=== PATIENT | female | born 1980 | race Caucasian/White ===

== ENCOUNTER 2016-08-14 18:19 | Emergency (ER) | payer BC ==
[2016-08-14 20:12] VITALS: BP 106/79
[2016-08-14] MEDS ORDERED: Ondansetron ODT TAB* 4 MG PO ONE (20:18)
[2016-08-14] MEDS ORDERED: Acetaminophen TAB* 325 MG PO ONE (20:52)
--- NOTE | 2016-08-14 20:57 | UC ---
HPI Febrile Illness - HPI Summary HPI Summary: felt well all day yesterday, then last night began feeling achey and chilled. Since then, fever to 103, vomited twice, total body aches, headache, sore throat , fatigue. "I cried all the way here, I have never felt so sick." Son ill with stomach virus, threw up all last night, today seems better. Pt unable to eat today due to nausea, not taking much fluids. No diarrhea. No flu shot this year - History of Current Complaint Chief Complaint: UCRespiratory Time Seen by Provider: 08/14/16 20:18 Hx Obtained From: Patient Onset/Duration: Started Days Ago - 1 Timing: Constant Initial Severity: Mild Current Severity: Moderate Aggravating Factors: Nothing Alleviating Factors: Nothing Associated Signs and Symptoms: Arthralgia, Chills, Headache, Myalgia, Nausea, Vomiting - twice, Weakness - Risk Factors Pseudomonas Risk Factors: Negative Serious Bacterial Infection Risk Factors: Negative - Additional Pertinent History Current Antibiotics: No - Allergy/Home Medications Allergies/Adverse Reactions: Allergies Allergy/AdvReac Type Severity Reaction Status Date / Time No Known Allergies Allergy Verified 08/14/16 20:12 Home Medications: Home Medications Ibuprofen TAB* [Advil TAB*] 400 mg PO Q4H PRN 08/14/16 [History Confirmed ] Phenylephrine-Chlorpheniramine [Olivia-Quincy Plus Cold &] 1 tab PO ONCE [History Confirmed 08/14/16] PMH/Surg Hx/FS Hx/Imm Hx Previously Healthy: Yes Respiratory History: Reports: Hx Asthma - Surgical History Surgery Procedure, Year, and Place: T & A. EAR TUBES Infectious Disease History: No Infectious Disease History: Denies: Hx Clostridium Difficile, Hx Hepatitis, Hx Human Immunodeficiency Virus (HIV), Hx of Known/Suspected MRSA, Hx Shingles, Hx Tuberculosis, Hx Known/ Suspected VRE, Hx Known/Suspected VRSA, History Other Infectious Disease, Traveled Outside the [place] in Last 30 Days - Family History Known Family History: Positive: Other - both parents and 3 siblings have hypothyroid. 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 Lives: With Family Alcohol Use: Rare Alcohol Amount: not drinking d/t Substance Use Type: Reports: None Smoking Status (MU): Never Smoked Tobacco Review of Systems Constitutional: Fever, Chills, Fatigue Skin: Negative Eyes: Negative ENT: Sore Throat - mild Respiratory: Negative Cardiovascular: Negative Gastrointestinal: Negative Genitourinary: Negative Motor: Negative Neurovascular: Negative Musculoskeletal: Arthralgia, Myalgia Neurological: Headache, Weakness Psychological: Negative All Other Systems Reviewed And Are Negative: Yes Physical Exam Triage Information Reviewed: Yes Appearance: No Pain Distress, Well-Nourished, Pain Distress - tearing up, appears very uncomfortable Vital Signs: Initial Vital Signs Temp 102.5 F 08/14/16 20:05 Pulse 119 08/14/16 20:05 Resp 24 08/14/16 20:05 BP 106/79 08/14/16 20:05 Pulse Ox 98 08/14/16 20:05 Vital Signs Reviewed: Yes Eye Exam: Normal Eyes: Positive: Conjunctiva Clear ENT: Positive: Hearing grossly normal, Pharyngeal erythema - s/p tonsillectomy, TMs normal. Negative: Tonsillar swelling, Tonsillar exudate, Trismus, Muffled/ hoarse voice Neck exam: Normal Neck: Positive: Supple, Nontender Respiratory Exam: Normal Respiratory: Positive: Lungs clear, Normal breath sounds, No respiratory distress, No accessory muscle use Cardiovascular Exam: Normal Abdomen Description: Positive: Nontender Musculoskeletal Exam: Normal Neurological Exam: Normal Neurological: Positive: Alert, Muscle Tone Normal Psychological Exam: Normal Skin Exam: Normal Diagnostics - Laboratory Diagnostic Studies Completed/Ordered: influenza neg; Strep pos Discharge - Discharge Plan Condition: Stable Disposition: HOME Prescriptions: Amoxicillin (*) 875 mg PO BID #20 tab Patient Education Materials: Strep Throat (ED) Forms: *Work Release Referrals: Alphonso Hillman MD [Primary Care Provider] -
[2016-08-14] MEDS ORDERED: Amoxicillin PO (*) 500 MG CAP PO ONE (21:07)
== END 2016-08-14 21:24 | disposition home or self-care (01) ==
LOC: UCCORT 18:19
DX: J02.0 Streptococcal pharyngitis (principal)
CPT/HCPCS: 87502; 87651; 99212; A9270-GY; G0463

== ENCOUNTER 2017-08-08 17:17 | Emergency (ER) | payer BC ==
--- NOTE | 2017-08-08 19:22 | UC ---
Throat Pain/Nasal Pierce HPI - HPI Summary HPI Summary: 37 y/o male presents to the urgent care c/o productive cough, SOB, chest tightness for the past 1 1/2 weeks. 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 Her symptoms are getting worse for the past 3 days with a green phlegm, chills, sore throat, sinus congestion, SEVERINO. Pt denies fever, chest pain, abdominal pain, N/V/D - History of Current Complaint Stated Complaint: COUGH/SINUSES Time Seen by Provider: 08/08/17 19:20 Hx Obtained From: Patient Hx Last Menstrual Period: last week Onset/Duration: Gradual Onset, Lasting Weeks - 1 1/2 weeks, Still Present, Worse Since - 3 days Severity: Moderate Pain Intensity: 5 - headache Pain Scale Used: 0-10 Numeric Cough: Sputum Appears - green Associated Signs & Symptoms: Positive: Sinus Discomfort, Nasal Discharge - Epiglottits Risk Factors Epiglottis Risk Factors: Negative - Allergies/Home Medications Allergies/Adverse Reactions: Allergies Allergy/AdvReac Type Severity Reaction Status Date / Time No Known Allergies Allergy Verified 08/08/17 19:31 Home Medications: Home Medications Sertraline* [Zoloft*] 50 mg PO DAILY 08/08/17 [History Confirmed 08/08/17] Topiramate [Topamax 50 mg tab] 50 mg PO BID 08/08/17 [History Confirmed 08/08/17 ] PMH/Surg Hx/FS Hx/Imm Hx Previously Healthy: Yes Respiratory History: Asthma - Surgical History Surgical History: Yes Surgery Procedure, Year, and Place: T & A. EAR TUBES - Family History Family History: Hypothyrodism - Social History Occupation: Employed Full-time Lives: With Family Alcohol Use: Rare Alcohol Amount: not drinking d/t Substance Use Type: None Smoking Status (MU): Never Smoked Tobacco - Immunization History Most Recent Influenza Vaccination: 2013 Most Recent Tetanus Shot: 2014 Most Recent Pneumonia Vaccination: none Review of Systems Constitutional: Negative, Chills, Other - body aches Skin: Negative Eyes: Negative ENT: Sore Throat, Nasal Discharge, Sinus Congestion, Sinus Pain/Tenderness Respiratory: Shortness Of Breath, Cough Cardiovascular: Negative Gastrointestinal: Negative Genitourinary: Negative Motor: Negative Neurovascular: Negative Musculoskeletal: Negative Neurological: Headache Is Patient Immunocompromised?: No All Other Systems Reviewed And Are Negative: Yes Physical Exam Triage Information Reviewed: Yes - Additional Comments VITAL SIGNS: Reviewed. GENERAL: Patient is a well developed and nourished female who is sitting comfortable in the examining table. Patient is not in any acute respiratory distress. HEAD AND FACE: No signs of trauma. No ecchymosis, hematomas or skull depressions. No sinus tenderness. EYES: PERRLA, EOMI x 2, No injected conjunctiva, no nystagmus. No photophobia. EARS: Hearing grossly intact. Ear canals and tympanic membranes are within normal limits. MOUTH: Positive pharynx with erythema, exudates, palatal petechiae. B/L tonsillar enlargement with exudate. Uvula in midline. NECK: Supple, trachea is midline, Positive anterior cervical lymphadenopathy, no JVD, no carotid bruit, no c-spine tenderness, neck with full ROM. No meningeal signs, no Kernig's or brudzinskis signs. CHEST: Symmetric, no tenderness at palpation LUNGS: Clear to auscultation bilaterally. No wheezing or crackles. CVS: Regular rate and rhythm, S1 and S2 present, no murmurs or gallops appreciated. ABDOMEN: Soft, non-tender. No signs of distention. No rebound no guarding, and no masses palpated. Bowel sounds are normal. EXTREMITIES: FROM in all major joints, no edema, no cyanosis or clubbing. NEURO: Alert and oriented x 3. No acute neurological deficits. Speech is normal and follows commands. SKIN: Dry and warm Throat Pain/Nasal Course/Dx - Course Course Of Treatment: 37 y/o male presents to the urgent care c/o productive cough, SOB, chest tightness for the past 1 1/2 weeks. 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 Her symptoms are getting worse for the past 3 days with a green phlegm, chills, sore throat , sinus congestion, SEVERINO. Pt denies fever, chest pain, abdominal pain, N/V/D. Hx obtained. Pt with mild scattered crackles on examination on the left upper posterior lung . Chest X-ray ordered to r/o pneumonia. Impression:No active cardiopulmonary disease observed. However Pt will be Tx as clinical pneumonia. Pt given Albuterol Neb to alleviate bronchospasm. Pt tolerated well Tx and Pt felt better. Pt Given first dose of Z-erica and sent Rx to pharmacy. Pt was instructed to go to the emergency room immediately if severe SOB and fever develops. Otherwise f/u with PCP if not improvement. Pt'es symptoms discussed with Dr Brock. Dr Brock agreed [facility] plan of care. Pt understood and agreed with d/c instructions.Pt left the clinic hemodynamically stable, A&OX3 - Differential Dx/Diagnosis Differential Diagnosis/HQI/PQRI: Influenza, Laryngitis, Pharyngitis, Sinusitis, URI, Other - bronchitis, pneumonia Provider Diagnoses: 1- clinical pneumonia Discharge - Discharge Plan Condition: Stable Disposition: HOME Prescriptions: Albuterol HFA INHALER* [Ventolin HFA Inhaler*] 1 - 2 puff INH Q6H PRN #1 mdi PRN Reason: Cough Azithromycin TAB* [Zithromax TAB (Z-ERICA) 250 mg #6 tabs] 250 mg PO DAILY #4 tab Benzonatate CAP* [Tessalon 100 MG CAP*] 100 mg PO TID PRN #21 cap PRN Reason: Cough Patient Education Materials: Community Acquired Pneumonia (ED) Referrals: [facility] [place] [facility] [Outside] - 2 Days Additional Instructions: 1-Please take full course of antibiotic to avoid resistance. 2-Take Tessalon PO tabs as directed and use the albuterol inhaler to alleviate cough. Increase fluid intake, rest and eat well. 3- If symptoms do not improve or worsen or your develop SOB with fever and severe wheezing please go immediately to the ER further evaluation and treatment. 4- F/u with your PCP in 2-3 days for further management
[2017-08-08 19:31] VITALS: BP 110/67
[2017-08-08] MEDS ORDERED: Albuterol 2.5 MG/3 ML NEB.SOL* (0.083%) INH ONE (19:44)
[2017-08-08] MEDS ORDERED: Azithromycin TAB* 250 MG PO ONE (21:01)
--- NOTE | 2017-08-08 21:03 | RAD ---
Indication: Productive cough. 2 views of the chest including dual energy PA views demonstrate no mediastinal shift. Heart is normal size and configuration. Lung tellez are clear. No changes noted since November 13, 2015. IMPRESSION: No active cardiopulmonary disease is noted.
== END 2017-08-08 21:11 | disposition home or self-care (01) ==
LOC: UCCORT 17:17
DX: J18.9 Pneumonia, unspecified organism (principal); J45.909 Unspecified asthma, uncomplicated
CPT/HCPCS: 71046; 99212; A9270-GY; G0463

== ENCOUNTER 2017-08-18 11:33 | Emergency (ER) | payer BC ==
[2017-08-18 13:30] VITALS: BP 107/69
[2017-08-18] MEDS ORDERED: Acetaminophen TAB* 325 MG PO ONE (13:43)
[2017-08-18] MEDS ORDERED: Levalbuterol 0.63MG/3ML NEB* UNIT OF USE INH ONE (13:50)
--- NOTE | 2017-08-18 14:05 | UC ---
Respiratory Complaint HPI - HPI Summary HPI Summary: Pt c/o sudden onset of generalized malaise, cough, wheezing, SOB, fever, chills. X 2 days. - History of Current Complaint Chief Complaint: UCGeneralIllness Stated Complaint: COUGH/ACHES Time Seen by Provider: 08/18/17 13:25 Hx Obtained From: Patient Hx Last Menstrual Period: 08/10/17 ?: No Onset/Duration: Sudden Onset, Lasting Days, Still Present, Worse Since - onset Timing: Constant Severity Initially: Mild Severity Currently: Moderate Pain Intensity: 9 Character: Cough: Nonproductive Aggravating Factors: Exertion, Deep Breaths, Recumbent Position Alleviating Factors: Nothing Associated Signs And Symptoms: Positive: Fever, Chills, Wheezing, URI, Nasal Congestion - Risk Factors Pulmonary Embolism Risk Factors: Negative Cardiac Risk Factors: Negative Pseudomonas Risk Factors: Negative Tuberculosis Risk Factors: Negative - Allergies/Home Medications Allergies/Adverse Reactions: Allergies Allergy/AdvReac Type Severity Reaction Status Date / Time No Known Allergies Allergy Verified 08/18/17 13:31 PMH/Surg Hx/FS Hx/Imm Hx Previously Healthy: Yes - Surgical History Surgical History: Yes Surgery Procedure, Year, and Place: T & A. EAR TUBES - Family History Known Family History: Positive: Other - both parents and 3 siblings have hypothyroid. No fmh of uti Family History: Hypothyrodism - Social History Occupation: Employed Full-time Lives: With Family Alcohol Use: Rare Alcohol Amount: not drinking d/t Substance Use Type: None Smoking Status (MU): Never Smoked Tobacco Have You Smoked in the Last Year: No - Immunization History Most Recent Influenza Vaccination: 2013 Most Recent Tetanus Shot: 2014 Most Recent Pneumonia Vaccination: none Review of Systems Constitutional: Fever, Chills, Fatigue Skin: Negative Eyes: Negative ENT: Sinus Congestion Respiratory: Shortness Of Breath, Cough Cardiovascular: Negative Gastrointestinal: Negative Genitourinary: Negative Motor: Negative Neurovascular: Negative Musculoskeletal: Myalgia Neurological: Headache Psychological: Negative Is Patient Immunocompromised?: No All Other Systems Reviewed And Are Negative: Yes Physical Exam Triage Information Reviewed: Yes Appearance: Ill-Appearing Vital Signs: Initial Vital Signs Temp 101.4 F 08/18/17 13:25 Pulse 126 08/18/17 13:25 Resp 20 08/18/17 13:25 BP 107/69 01/28/18 13:25 Pulse Ox 96 08/18/17 13:25 Vital Signs Reviewed: Yes Eye Exam: Normal ENT Exam: Other ENT: Positive: Nasal congestion Dental Exam: Normal Neck exam: Normal Respiratory Exam: Other Respiratory: Positive: Rhonchi Cardiovascular Exam: Other Cardiovascular: Positive: Tachycardia Musculoskeletal Exam: Normal Neurological Exam: Normal Psychological Exam: Normal Skin Exam: Normal UC Diagnostic Evaluation - Laboratory O2 Sat by Pulse Oximetry: 96 Diagnostic Studies Comment: Rapid Influenza B positive - Radiology Radiology Interpretation Completed By: Radiologist - IMPRESSION: NO ACTIVE DISEASE. Respiratory Course/Dx - Course Course Of Treatment: Rapid Influenza B positive. IMPRESSION: NO ACTIVE DISEASE. - Differential Dx/Diagnosis Differential Diagnosis/HQI/PQRI: Bronchitis, Influenza Provider Diagnoses: Influenza B. Bronchitis Discharge - Discharge Plan Condition: Stable Disposition: HOME Prescriptions: Azithromycin TAB* [Zithromax TAB (Z-ERICA) 250 mg #6 tabs] 2 tab PO .TODAY, THEN 1 DAILY #1 erica Benzonatate CAP* [Tessalon 100 MG CAP*] 100 mg PO Q8H PRN #30 cap PRN Reason: Cough Oseltamivir CAP* [Tamiflu CAP*] 75 mg PO Q12H #5 cap predniSONE TAB* [Deltasone TAB*] 30 mg PO DAILY #12 tab Patient Education Materials: Influenza (ED), Acute Bronchitis (ED) Referrals: Alphonso Hillman MD [Primary Care Provider] - If Needed Additional Instructions: Please follow up with your PCP or return to clinic as needed. Please note if symptoms worsen, please seek care at the closest Emergency Room.
--- NOTE | 2017-08-18 14:21 | RAD ---
INDICATION: Short of breath. Cough. Fever COMPARISON: August 08, 2017 TECHNIQUE: PA and lateral dual-energy views were obtained. FINDINGS: Bones/Soft Tissues: There are no acute bony findings. Cardiomediastinal: The cardiomediastinal silhouette is normal. Lungs: There are no infiltrates. Pleura: There are no pleural effusions. Other: None IMPRESSION: NO ACTIVE DISEASE.
== END 2017-08-18 14:43 | disposition home or self-care (01) ==
LOC: UCCORT 11:33
DX: J11.1 Influenza due to unidentified influenza virus with other respiratory manifestations (principal); J40 Bronchitis, not specified as acute or chronic
CPT/HCPCS: 71046; 87502; 99211; A9270-GY; G0463; J7614

== ENCOUNTER 2018-11-06 17:13 | Emergency (ER) | payer BC ==
[2018-11-06 17:37] VITALS: BP 106/62
--- NOTE | 2018-11-06 18:00 | ED ---
Respiratory - HPI Summary HPI Summary: 38 yr old female with the complaint of cough, runny nose, post nasal drip, sore throat. Onset of symptoms over a week ago. The patient has a history of asthma as well. Her coughing is worse at night, and coughing spells can be bad. She states at time the coughing can take her breath away. 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 - History of Current Complaint Chief Complaint: UCGeneralIllness Stated Complaint: COUGH,SORE THROAT Time Seen by Provider: 11/06/18 17:41 Pain Intensity: 7 - Allergy/Home Medications Allergies/Adverse Reactions: Allergies Allergy/AdvReac Type Severity Reaction Status Date / Time No Known Allergies Allergy Verified 11/06/18 17:37 PMH/Surg Hx/FS Hx/Imm Hx Respiratory History: Reports: Hx Asthma - Surgical History Surgery Procedure, Year, and Place: T & A. EAR TUBES Infectious Disease History: No Infectious Disease History: Denies: Hx Clostridium Difficile, Hx Hepatitis, Hx Human Immunodeficiency Virus (HIV), Hx of Known/Suspected MRSA, Hx Shingles, Hx Tuberculosis, Hx Known/ Suspected VRE, Hx Known/Suspected VRSA, History Other Infectious Disease, Traveled Outside the [place] in Last 30 Days - Family History Known Family History: Positive: Other - both parents and 3 siblings have hypothyroid. No fmh of uti Family History: Hypothyrodism - Social History Occupation: Employed Full-time Alcohol Use: Rare Alcohol Amount: not drinking d/t Substance Use Type: Reports: None Smoking Status (MU): Never Smoked Tobacco Have You Smoked in the Last Year: No Review of Systems Constitutional: Negative Positive: Nasal Discharge Positive: Cough All Other Systems Reviewed And Are Negative: Yes Physical Exam Triage Information Reviewed: Yes Vital Signs On Initial Exam: Initial Vitals Temp Pulse Resp BP Pulse Ox 99.3 F 76 16 106/62 100 11/06/18 17:34 11/06/18 17:34 11/06/18 17:34 11/06/18 17:34 11/06/18 17:34 Vital Signs Reviewed: Yes Appearance: Positive: Well-Appearing, No Pain Distress Skin: Positive: Warm, Skin Color Reflects Adequate Perfusion Head/Face: Positive: Normal Head/Face Inspection Eyes: Positive: EOMI ENT: Positive: Pharyngeal erythema, Nasal congestion, TMs normal, Sinus tenderness Neck: Positive: Nontender Respiratory/Lung Sounds: Positive: Clear to Auscultation, Breath Sounds Present Cardiovascular: Positive: RRR. Negative: Murmur Abdomen Description: Negative: Distended Musculoskeletal: Positive: Strength/ROM Intact Neurological: Positive: Sensory/Motor Intact, Alert, Oriented to Person Place, Time, CN Intact II-III, Normal Gait, Speech Normal Psychiatric: Positive: Normal Diagnostics - Vital Signs Vital Signs Temp Pulse Resp BP Pulse Ox 11/06/18 17:34 99.3 F 76 16 106/62 100 - Laboratory Lab Statement: Any lab studies that have been ordered have been reviewed, and results considered in the medical decision making process. Disposition - Course Course Of Treatment: 38 yr old with sinusitis and acute bronchitis. Rx with biaxin and also prednisone. She has an albuterol inhaler at home already. - Diagnoses Provider Diagnoses: Acute bronchitis, Asthma, Sinusitis, Sore throat Discharge - Sign-Out/Discharge Documenting (check all that apply): Patient Departure All imaging exams completed and their final reports reviewed: No Studies - Discharge Plan Condition: Good Disposition: HOME Prescriptions: Clarithromycin TAB* [Biaxin 500 MG TAB*] 500 mg PO BID #20 tab predniSONE [Prednisone 20 MG TAB] 40 mg PO DAILY #8 tablet Patient Education Materials: Sinusitis (ED), Bronchospasm (ED), Acute Bronchitis (ED) Referrals: Alphonso Hillman MD [Primary Care Provider] - 2 Days - Billing Disposition and Condition Condition: GOOD Disposition: Home
== END 2018-11-06 18:00 | disposition home or self-care (01) ==
LOC: UCCORT 17:13
DX: J20.9 Acute bronchitis, unspecified (principal); J45.909 Unspecified asthma, uncomplicated; J32.9 Chronic sinusitis, unspecified; J02.9 Acute pharyngitis, unspecified
CPT/HCPCS: 99212; G0463

== ENCOUNTER 2019-08-22 20:35 | Emergency (ER) | payer BC ==
--- OUTSIDE RECORDS SUMMARY | 2019-08-22 20:40 | XMS REPORT | Continuity of Care Document ---
:1980 External Reference #:[id number] Author Name Fredy Persaud NP (transmitted by agent of provider Javier Bhatia) Address [address] [facility] [address], [place] [address] Care Team Providers Name Role Phone Alphonso Hillman MD - Family Medicine Care Team Information Shower Maid Problems Description No Information Available Social History Type Date Description Comments Sex Unknown Tobacco Use Start: Unknown Never Smoked Cigarettes Smoking Status Reviewed: 07/16/19 Never Smoked Cigarettes ETOH Use Occasionally consumes alcohol Tobacco Use Start: Unknown Patient has never smoked Recreational Drug Use Denies Drug Use Exercise Type/Frequency Exercises sporadically Allergies, Adverse Reactions, Alerts Description No Known Drug Allergies Medications Active Medications SIG Qnty Indications Ordering Provider Date Aimovig inject sq once a 1ml G43.009 Dontae Lepe, 07/16/2019 70mg/ml Solution month M.D. Auto-Inject Topiramate Take one tab by 21tabs Dontae Lepe, 07/16/2019 25mg Tablets mouth twice a M.D. day for one week, then take one tab by mouth for one week, then discontinue. Zoloft 1 by mouth every Unknown 100mg Tablets day Topamax 1 tab by mouth Unknown 50mg Tablets twice a day Magnesium takes 150mg Unknown 300mg Capsules daily Multivitamin Adult 1 by mouth every Unknown day Chewtabs Acidophilus Probiotic daily Unknown 10mg Capsules Immunizations Description No Information Available Vital Signs Date Vital Result Comment 07/16/2019 2:03pm Height 62 inches 5'2" Weight 174.38 lb Heart Rate 66 /min BP Systolic Sitting 118 mmHg BP Diastolic Sitting 70 mmHg Respiratory Rate 12 /min O2 % BldC Oximetry 98 % BMI (Body Mass Index) 31.9 kg/m2 06/11/2019 12:52pm Height 62 inches 5'2" Weight 169.12 lb Heart Rate 110 /min BP Systolic Sitting 118 mmHg BP Diastolic Sitting 68 mmHg Respiratory Rate 18 /min Pain Level 4 migraine O2 % BldC Oximetry 97 % BMI (Body Mass Index) 30.9 kg/m2 Results Test Acquired Date Facility Test Result H/L Range Note Laboratory test 06/11/2019 [facility] Cortisol 14.47 g/dL [address] [place] [address] [phone] Creatine Kinase(CK) 53 U/L Normal 10-223 Lyme Disease AB 06/11/2019 [facility] IgG Immunoblot Negative Negative Immunoblot WB [address] [place] [address] [phone] IgG detected against p41,p23 kDa IgM Immunoblot Negative Negative IgM detected against None kDa Lyme Disease Interpretation See Comment 2 Laboratory test 06/11/2019 [facility] C Reactive 1.14 mg/L Normal <8.[address] [place] [address] [place] [address] [phone] Blood Urea Nitrogen BUN 19 mg/dL Normal 6-24 Creatinine 06/11/2019 [facility] Creatinine 0.81 mg/dL Normal 0.51-0.[address] [place] [address] [phone] Egfr Non- 78.3 >60 Egfr 94.8 >60 3 Nuclear AB 06/11/2019 [facility] Nuclear Ab Positive 1:160 4 (Nikky) By [facility] [address] [place] [address] (Nikky) by [employer], [place] [address] IgG [phone] Nikky Titer: 1:160 Nikky Pattern: Speckled 5 Laboratory test 04/09/2019 [facility] T3 Total 116 ng/dL Normal 87-[address] [place] [address] [phone] Thyroxine 8.05 g/dL Normal 6.09-12.23 Laboratory test 04/09/2019 [facility] Vitamin B12 662 pg/mL Normal 180-914 [address] [place] [address] [phone] Erythrocyte Sed Rate 12 mm/Hr Normal 0-19 Lyme Screen W/ Reflex To WB Negative Negative Comp Metabolic 04/09/2019 [facility] Sodium 138 mmol/L Normal 135-[address] [place] [address] [phone] Potassium 4.0 mmol/L Normal 3.5-5.0 Chloride 108 mmol/L Normal 101-111 Co2 Carbon Dioxide 24 mmol/L Normal 22-32 Anion Gap 6 mmol/L Normal 2-11 Glucose 84 mg/dL Normal 70-100 Blood Urea Nitrogen 19 mg/dL Normal 6-24 Creatinine 0.89 mg/dL Normal 0.51-0.95 BUN/Creatinine Ratio 21.3 High 8-20 Calcium 9.4 mg/dL Normal 8.6-10.3 Total Protein 6.9 g/dL Normal 6.4-8.9 Albumin 4.7 g/dL Normal 3.2-5.2 Globulin 2.2 g/dL Normal 2-4 Albumin/Globulin Ratio 2.1 Normal 1-3 Total Bilirubin 0.50 mg/dL Normal 0.2-1.0 Alkaline Phosphatase 46 U/L Normal 34-104 Alt 11 U/L Normal 7-52 Ast 16 U/L Normal 13-39 Egfr Non- 70.2 >60 Egfr 85.0 >60 7 Laboratory 04/09/2019 [facility] TSH (Thyroid 1.88 Normal 0.34 -5.[address] Stim Horm) mcIU/[place] [address] [phone] Folic Acid (Folate) > 20.00 ng/mL >3.99 CBC Auto 04/09/2019 [facility] White Blood 7.6 10^3/uL Normal 3.5-10.[address] [place] [address] [phone] Red Blood Count 4.25 10^6/uL Normal 3.70-4.87 Hemoglobin 12.9 g/dL Normal 12.0-16.0 Hematocrit 38 % Normal 35-47 Mean Corpuscular Volume 90 fL Normal 80-97 Mean Corpuscular Hemoglobin 30 pg Normal 27-31 Mean Corpuscular HGB Conc 34 g/dL Normal 31-36 Red Cell Distribution Width 13 % Normal 10-15 Platelet Count 271 10^3/uL Normal 150-450 Mean Platelet Volume 7.7 fL Normal 7.4-10.4 Abs Neutrophils 4.8 10^3/uL Normal 1.5-7.7 Abs Lymphocytes 2.1 10^3/uL Normal 1.0-4.8 Abs Monocytes 0.5 10^3/uL Normal 0-0.8 Abs Eosinophils 0.1 10^3/uL Normal 0-0.6 Abs Basophils 0.0 10^3/uL Normal 0-0.2 Abs Nucleated RBC 0.0 10^3/uL Granulocyte % 63.6 % Lymphocyte % 28.3 % Monocyte % 6.6 % Eosinophil % 1.0 % Basophil % 0.5 % Nucleated Red Blood Cells % 0.0 Protein 04/09/2019 [facility] Total 7.4 g/dL 6.3 - Electrophoresis [address] Protein(Pep) 7.9 [place] [address] [phone] Albumin 4.0 g/dL 3.4-4.7 Alpha-1 Globulin 0.2 g/dL 0.1-0.3 Alpha-2 Globulin 0.9 g/dL 0.6-1.0 Beta Globulin 1.2 g/dL 0.7-1.2 Gamma Globulin 1.1 g/dL 0.6-1.6 Albumin/Globulin Ratio 1.15 Impression See Comment 8 Laboratory test 04/09/2019 [facility] Methylmalonic Acid 0.15 <=0.40 [address] Mma nmol/[place] [address] [phone] 1 AM 8.7-22.4 PM <10 2 Specific serologic response to B. burgdorferi infection is not detected, but cannot rule out early infection during which low or undetectable antibody levels to B. burgdorferi may be present. If clinically indicated, a new serum specimen should be submitted in 7-14 days. ADDITIONAL INFORMATION Per CDC criteria, the Lyme IgG Immunoblot is interpreted as positive if IgG-class antibodies are detected to >=5 B. burgdorferi proteins, and the Lyme IgM Immunoblot is interpreted as positive if IgM-class antibodies are detected to >=2 B. burgdorferi proteins. Immunoblot patterns not meeting these criteria should not be interpreted as positive. Epitopes from certain B. burgdorferi proteins (e.g., p41) are conserved across other bacteria, which may lead to the detection of IgM- and/or IgG-class antibodies on the Lyme disease immunoblots in patients without Lyme disease. Immunoblot should only be ordered on specimens that are positive or equivocal by a FDA-licensed Lyme disease antibody screening test (e.g., EIA). Results of the Lyme IgM immunoblot should not be considered in patients with >= 30 days of symptoms. Test Performed by: [place] [address] Standard Machine Stitcher: Jacob Nolan M.D. Ph.D.; CLIA# [id number] 3 Because ethnic data is not always readily available, this report includes an eGFR for both -Americans and non- Americans. The National Kidney Disease Education Program (NKDEP) does not endorse the use of the MDRD equation for patients that are not between the ages of 18 and 70, are , have extremes of body size, muscle mass, or nutritional status, or are non- or non-. According to the National Kidney Foundation, irrespective of diagnosis, the stage of the disease is based on the level of kidney function: Stage Description GFR(mL/min/1.73 m(2)) 1 Kidney damage with normal or decreased GFR 90 2 Kidney damage with mild decrease in GFR 60-89 3 Moderate decrease in GFR 30-59 4 Severe decrease in GFR 15-29 5 Kidney failure <15 (or dialysis) 4 REFERENCE VALUE <1:80 (Negative) 5 Test Performed by: [place] [address] Standard Machine Stitcher: aJcob Nolan M.D. Ph.D.; CLIA# [id number] 6 Normal Range 180 to 914 Indeterminate Range 145 to 180 Deficient Range <145 7 Because ethnic data is not always readily available, this report includes an eGFR for both -Americans and non- Americans. The National Kidney Disease Education Program (NKDEP) does not endorse the use of the MDRD equation for patients that are not between the ages of 18 and 70, are , have extremes of body size, muscle mass, or nutritional status, or are non- or non-. According to the National Kidney Foundation, irrespective of diagnosis, the stage of the disease is based on the level of kidney function: Stage Description GFR(mL/min/1.73 m(2)) 1 Kidney damage with normal or decreased GFR 90 2 Kidney damage with mild decrease in GFR 60-89 3 Moderate decrease in GFR 30-59 4 Severe decrease in GFR 15-29 5 Kidney failure <15 (or dialysis) 8 RESULT: No apparent monoclonal protein on serum electrophoresis. Test Performed by: [facility] [address] [place] [address] Standard Machine Stitcher: Jacob Nolan M.D. Ph.D.; CLIA# [id number] 9 ADDITIONAL INFORMATION This test was developed and its performance characteristics determined by [facility] in a manner consistent with CLIA requirements. This test has not been cleared or approved by the U.S. Food and Drug Administration. Test Performed by: [facility] [place] [id number] Standard Machine Stitcher: Jacob Nolan M.D. Ph.D.; CLIA# [id number] Procedures Description No Information Available Medical Devices Description No Information Available Encounters Type Date Location Provider Dx Diagnosis Office Visit 06/11/2019 Marcial/Mike Persaud NP R53.83 Other fatigue 1:00p [facility] [employer] R53.1 Weakness G43.009 Migraine w/o aura, not intractable, w/o status migrainosus Office Visit 04/09/2019 1:00p Marcial/Mike Persaud R53.83 Other fatigue [facility] [employer]PON CL[employer] R53.1 Weakness Assessments Date Code Description Provider 07/16/2019 R53.83 Other fatigue Fredy Persaud NP 07/16/2019 R53.1 Weakness Fredy Persaud NP 07/16/2019 G43.009 Migraine without aura, not intractable, without Fredy Knaake, COUPON CLERK status migrainosus 06/11/2019 R53.83 Other fatigue Fredy Persaud, COUPON CLERK 06/11/2019 R53.1 Weakness Fredy Persaud, COUPON CLERK 06/11/2019 G43.009 Migraine without aura, not intractable, without Fredy Persaud NP status migrainosus 04/09/2019 R53.83 Other fatigue Fredy Persaud, COUPON CLERK 04/09/2019 R53.1 Weakness Fredy Persaud NP Plan of Treatment Future Appointment(s):09/10/2019 1:00 pm - Fredy Persaud NP at [facility]07/16/2019 - Fredy Persaud, NPR53.83 Other fatigueReferral: Jose Guadarrama MD, OuthmyzyvpxsH36.1 TchmzfmqU64.009 Migraine without aura, not intractable, without status migrainosusNew Medication:Aimovig 70 mg/ml - inject sq once a monthFollow up:1-2 MONTHS Functional Status Description No Information Available Mental Status Description No Information Available Referrals Refer to Reason for Referral Status Appt Date Jose Guadarrama MD Positive NIKKY; unrelenting fatigue and weakness Created that worsens throughout the day [address] [place] [address] [phone]
--- OUTSIDE RECORDS SUMMARY | 2019-08-22 20:40 | XMS REPORT | Continuity of Care Document ---
:1980 External Reference #:[id number] Author Name Dave Guadarrama MD (transmitted by agent of provider Nedra Burgos) Address [address] [place] [id number] Care Team Providers Name Role Phone Alphonso Hillman MD - Family Medicine Care Team Information Associate Faculty [phone] Problems Description No Information Available Social History Type Date Description Comments Sex Unknown Tobacco Use Start: Unknown Never Smoked Cigarettes Smoking Status Reviewed: 08/21/19 Never Smoked Cigarettes ETOH Use Occasionally consumes alcohol Tobacco Use Start: Unknown Patient has never smoked Recreational Drug Use Denies Drug Use Exercise Type/Frequency Exercises sporadically Allergies, Adverse Reactions, Alerts Description No Known Drug Allergies Medications Active Medications SIG Qnty Indications Ordering Provider Date Meloxicam 1 by mouth every 90tabs M06.4 Dave Guadarrama, 08/21/2019 15mg Tablets day Aimovig inject sq once a 1ml G43.009 Dontae Lepe, 07/16/2019 70mg/ml Solution month M.D. Auto-Inject Zoloft 1 by mouth every Unknown 100mg Tablets day Magnesium takes 150mg Unknown 300mg Capsules daily Multivitamin Adult 1 by mouth every Unknown day Chewtabs Acidophilus Probiotic daily Unknown 10mg Capsules History Medications Topiramate Take one tab by mouth 21tabs Dontae Lepe, 07/16/2019 - 25mg twice a day for one M.D. 08/20/2019 Tablets week, then take one tab by mouth for one week, then discontinue. Immunizations Description No Information Available Vital Signs Date Vital Result Comment 08/21/2019 12:38pm Height 62 inches 5'2" Weight 170.00 lb Heart Rate 70 /min BP Systolic 112 mmHg BP Diastolic 71 mmHg Body Temperature 98.9 F Pain Level 6 O2 % BldC Oximetry 98 % BMI (Body Mass Index) 31.1 kg/m2 07/16/2019 2:03pm Height 62 inches 5'2" Weight 174.38 lb Heart Rate 66 /min BP Systolic Sitting 118 mmHg BP Diastolic Sitting 70 mmHg Respiratory Rate 12 /min O2 % BldC Oximetry 98 % BMI (Body Mass Index) 31.9 kg/m2 Results Test Acquired Date Facility Test Result H/L Range Note Myasthenia 07/20/2019 [facility] MG Adult See Comment 1 Gravis (), [address] Interpret[place] [address] [phone] Acetylcholine Receptor Binding 0.00 nmol/L <=0.02 2 Acetylcholine Recept Mod Ab 13 % 3 Anti-Striated Muscle Antibody Negative titer <1:120 4 Paraneoplastic 07/20/2019 [facility] Paraneoplastic Ab See Comment [address] [place] [address] [phone] Anti-Neuronal Nuclear Ab Type1 Negative titer <1:240 Reflex Added None. 6 Anti-Neuronal Nuclear Ab Type2 Negative titer <1:240 7 Anti-Neuronal Nuclear Ab Type3 Negative titer <1:240 8 Anti-Glial/Neuronal Nuc Ab-1 A Negative titer <1:240 9 Purkinje Cell Cytoplasm Type 1 Negative titer <1:240 10 Purkinje Cell Cytoplasm Type 2 Negative titer <1:240 11 Purkinje Cell Cytoplasm Typ Tr Negative titer <1:240 12 Amphiphysin Antibody Negative titer <1:240 13 CRMP-5 IgG Antibody Negative titer <1:240 14 Anti-Striated Muscle Antibody Negative titer <1:120 15 Calcium Channel Binding Ab P/Q 0.00 nmol/L <=0.02 16 N Type Calcium Channel Binding 0.00 nmol/L <=0.03 17 AChR Ganglionic Neuronal Ab 0.00 nmol/L <=0.02 18 Voltage-Gated Potassium Chann 0.02 nmol/L <=0.02 19 CBC Auto 07/20/2019 [facility] White Blood 5.2 10^3/uL Normal 3.5-10.[address] [address] [phone] Red Blood Count 3.82 10^6/uL Normal 3.70-4.87 Hemoglobin 11.6 g/dL Low 12.0-16.0 Hematocrit 34 % Low 35-47 Mean Corpuscular Volume 90 fL Normal 80-97 Mean Corpuscular Hemoglobin 30 pg Normal 27-31 Mean Corpuscular HGB Conc 34 g/dL Normal 31-36 Red Cell Distribution Width 15 % Normal 10-15 Platelet Count 280 10^3/uL Normal 150-450 Mean Platelet Volume 8.2 fL Normal 7.4-10.4 Abs Neutrophils 2.8 10^3/uL Normal 1.5-7.7 Abs Lymphocytes 1.8 10^3/uL Normal 1.0-4.8 Abs Monocytes 0.5 10^3/uL Normal 0-0.8 Abs Eosinophils 0.1 10^3/uL Normal 0-0.6 Abs Basophils 0.0 10^3/uL Normal 0-0.2 Abs Nucleated RBC 0.0 10^3/uL Granulocyte % 53.6 % Lymphocyte % 34.5 % Monocyte % 8.9 % Eosinophil % 2.2 % Basophil % 0.8 % Nucleated Red Blood Cells % 0.0 Comp Metabolic 07/20/2019 [facility] Sodium 138 mmol/L Normal 135-[address] [place] [address] [phone] Potassium 4.3 mmol/L Normal 3.5-5.0 Chloride 109 mmol/L Normal 101-111 Co2 Carbon Dioxide 24 mmol/L Normal 22-32 Anion Gap 5 mmol/L Normal 2-11 Glucose 86 mg/dL Normal 70-100 Blood Urea Nitrogen 21 mg/dL Normal 6-24 Creatinine 0.77 mg/dL Normal 0.51-0.95 BUN/Creatinine Ratio 27.3 High 8-20 Calcium 8.7 mg/dL Normal 8.6-10.3 Total Protein 6.6 g/dL Normal 6.4-8.9 Albumin 4.3 g/dL Normal 3.2-5.2 Globulin 2.3 g/dL Normal 2-4 Albumin/Globulin Ratio 1.9 Normal 1-3 Total Bilirubin 0.30 mg/dL Normal 0.2-1.0 Alkaline Phosphatase 44 U/L Normal 34-104 Alt 10 U/L Normal 7-52 Ast 17 U/L Normal 13-39 Egfr Non- 83.0 >60 Egfr 100.5 >60 20 Laboratory test 07/20/2019 [facility] Caspr2-IgG Cba,S Negative [address] [place] [phone] Lgi1-IgG Cba, S Negative 22 Lyme Disease AB 06/11/2019 [facility] IgG Immunoblot Negative Negative Immunoblot WB [address] [place] [address] [phone] IgG detected against p41,p23 kDa IgM Immunoblot Negative Negative IgM detected against None kDa Lyme Disease Interpretation See Comment 23 Laboratory test 06/11/2019 [facility] C Reactive 1.14 mg/L Normal <8.01 finding [address] [facility] [place] [address] [phone] Blood Urea Nitrogen BUN 19 mg/dL Normal 6-24 Creatinine 06/11/2019 [facility] Creatinine 0.81 mg/dL Normal 0.51-0.[address] [place] [address] [phone] Egfr Non- 78.3 >60 Egfr 94.8 >60 24 Nuclear AB 06/11/2019 [facility] Nuclear Ab Positive 1:160 25 (Nikky) By Ifa [address] [facility] (Nikky) by Ifa, [place] [address] IgG [phone] Nikky Titer: 1:160 Nikky Pattern: Speckled 26 Laboratory test finding 06/11/2019 [facility] Cortisol 14.47 g /dL [address] [place] [address] [phone] Creatine Kinase(CK) 53 U/L Normal 10-223 Laboratory test 04/09/2019 [facility] T3 Total 116 ng/dL Normal 87-[address] [place] [phone] Thyroxine 8.05 g/dL Normal 6.09-12.23 Laboratory test 04/09/2019 [facility] Vitamin B12 662 pg/mL Normal 180-914 [address] [place] [address] [phone] Erythrocyte Sed Rate 12 mm/Hr Normal 0-19 Lyme Screen W/ Reflex To WB Negative Negative Comp Metabolic 04/09/2019 [facility] Sodium 138 mmol/L Normal 135-[address] [place] [address] [phone] Potassium 4.0 mmol/L Normal 3.5-5.0 Chloride 108 [...] Egfr Non- 70.2 >60 Egfr 85.0 >60 29 Laboratory 04/09/2019 [facility] TSH (Thyroid 1.88 Normal 0.34 -5.60 test finding [address] Stim Horm) mcIU/[place] [address] [phone] Folic Acid (Folate) > 20.00 ng/mL >3.99 CBC Auto 04/09/2019 [facility] White Blood 7.6 10^3/uL Normal 3.5-10.[address] [place] [address] [phone] Red Blood Count 4.25 10^6/uL Normal 3.70-4.87 [...] Red Blood Cells % 0.0 Protein 04/09/2019 [facility] Total 7.4 g/dL 6.3 - Electrophoresis [address] Protein(Pep) 7.9 [place] [address] [phone] Albumin 4.0 g/dL 3.4-4.7 Alpha-1 Globulin 0.2 g/dL 0.1-0.3 Alpha-2 Globulin 0.9 g/dL 0.6-1.0 Beta Globulin 1.2 g/dL 0.7-1.2 Gamma Globulin 1.1 g/dL 0.6-1.6 Albumin/Globulin Ratio 1.15 Impression See Comment 30 Laboratory test 04/09/2019 [facility] Methylmalonic 0.15 <= 0.[address] Acid Mma nmol/[place] [address] [phone] 1 A negative result does not exclude the diagnosis of autoimmune myasthenia gravis. 2 ADDITIONAL INFORMATION This test was developed and its performance characteristics determined by [facility] in a manner consistent with CLIA requirements. This test has not been cleared or approved by the U.S. Food and Drug Administration. 3 REFERENCE VALUE 0-20% (reported as _% loss of AChR) ADDITIONAL INFORMATION This test was developed and its performance characteristics determined by [facility] in a manner consistent with CLIA requirements. This test has not been cleared or approved by the U.S. Food and Drug Administration. 4 ADDITIONAL INFORMATION This test was developed and its performance characteristics determined by [facility] in a manner consistent with CLIA requirements. This test has not been cleared or approved by the U.S. Food and Drug Administration. Test Performed by: [address] [address] Floor Associate: Jacob Nolan M.D. Ph.D.; CLIA# [id number] 5 Reflexed test(s) performed per testing algorithm. * No informative autoantibodies were detected in the Paraneoplastic Evaluation. However, a negative result does not exclude neurological autoimmunity with or without associated neoplasia. Sensitivity and specificity of antibody testing are enhanced by testing both serum and CSF. 6 ADDITIONAL INFORMATION This test was developed and its performance characteristics determined by [facility] in a manner consistent with CLIA requirements. This test has not been cleared or approved by the U.S. Food and Drug Administration. 7 ADDITIONAL INFORMATION This test was developed and its performance characteristics determined by [facility] in a manner consistent with CLIA requirements. This test has not been cleared or approved by the U.S. Food and Drug Administration. 8 ADDITIONAL INFORMATION This test was developed and its performance characteristics determined by [facility] in a manner consistent with CLIA requirements. This test has not been cleared or approved by the U.S. Food and Drug Administration. 9 ADDITIONAL INFORMATION This test was developed and its performance characteristics determined by [facility] in a manner consistent with CLIA requirements. This test has not been cleared or approved by the U.S. Food and Drug Administration. 10 ADDITIONAL INFORMATION This test was developed and its performance characteristics determined by [facility] in a manner consistent with CLIA requirements. This test has not been cleared or approved by the U.S. Food and Drug Administration. 11 ADDITIONAL INFORMATION This test was developed and its performance characteristics determined by [facility] in a manner consistent with CLIA requirements. This test has not been cleared or approved by the U.S. Food and Drug Administration. 12 ADDITIONAL INFORMATION This test was developed and its performance characteristics determined by [facility] in a manner consistent with CLIA requirements. This test has not been cleared or approved by the U.S. Food and Drug Administration. 13 ADDITIONAL INFORMATION This test was developed and its performance characteristics determined by [facility] in a manner consistent with CLIA requirements. This test has not been cleared or approved by the U.S. Food and Drug Administration. 14 ADDITIONAL INFORMATION This test was developed and its performance characteristics determined by [facility] in a manner consistent with CLIA requirements. This test has not been cleared or approved by the U.S. Food and Drug Administration. 15 ADDITIONAL INFORMATION This test was developed and its performance characteristics determined by [facility] in a manner consistent with CLIA requirements. This test has not been cleared or approved by the U.S. Food and Drug Administration. Test Performed by: [facility] - [address] [address] Floor Associate: Jacob Nolan M.D. Ph.D.; CLIA# [id number] 16 ADDITIONAL INFORMATION This test was developed and its performance characteristics determined by [facility] in a manner consistent with CLIA requirements. This test has not been cleared or approved by the U.S. Food and Drug Administration. 17 ADDITIONAL INFORMATION This test was developed and its performance characteristics determined by [facility] in a manner consistent with CLIA requirements. This test has not been cleared or approved by the U.S. Food and Drug Administration. 18 ADDITIONAL INFORMATION This test was developed and its performance characteristics determined by [facility] in a manner consistent with CLIA requirements. This test has not been cleared or approved by the U.S. Food and Drug Administration. 19 ADDITIONAL INFORMATION This test was developed and its performance characteristics determined by [facility] in a manner consistent with CLIA requirements. This test has not been cleared or approved by the U.S. Food and Drug Administration. 20 Because ethnic data is not always readily [...] 15-29 5 Kidney failure <15 (or dialysis) 21 ADDITIONAL INFORMATION This test was developed and its performance characteristics determined by [facility] in a manner consistent with CLIA requirements. This test has not been cleared or approved by the U.S. Food and Drug Administration. Test Performed by: [facility] [place] [place] [address] Floor Associate: Jacob Nolan M.D. Ph.D.; CLIA# [id number] 22 ADDITIONAL INFORMATION This test was developed and its performance characteristics determined by [facility] in a manner consistent with CLIA requirements. This test has not been cleared or approved by the U.S. Food and Drug Administration. Test Performed by: [facility] [place] [place] [address] Floor Associate: Jacob Nolan M.D. Ph.D.; CLIA# [id number] 23 Specific serologic response to B. burgdorferi infection [...] 30 days of symptoms. Test Performed by: [place] [address] Floor Associate: Jacob Nolan M.D. Ph.D.; CLIA# [id number] 24 Because ethnic data is not always readily [...] 15-29 5 Kidney failure <15 (or dialysis) 25 REFERENCE VALUE <1:80 (Negative) 26 Test Performed by: [place] [address] Floor Associate: Jacob Nolan M.D. Ph.D.; CLIA# [id number] 27 AM 8.7-22.4 PM <10 28 Normal Range 180 to 914 Indeterminate Range 145 to 180 Deficient Range <145 29 Because ethnic data is not always readily [...] 15-29 5 Kidney failure <15 (or dialysis) 30 RESULT: No apparent monoclonal protein on serum electrophoresis. Test Performed by: [facility] - [facility] [address] [place] [address] Floor Associate: Jacob Nolan M.D. Ph.D.; CLIA# [id number] 31 ADDITIONAL INFORMATION This test was developed and its performance characteristics determined by [facility] in a manner consistent with CLIA requirements. This test has not been cleared or approved by the U.S. Food and Drug Administration. Test Performed by: [facility] - [place] [id number] Floor Associate: Jacob Nolan M.D. Ph.D.; CLIA# [id number] Procedures Description No Information Available Medical Devices Description No Information Available Encounters Type Date Location Provider Dx Diagnosis Office Visit 08/21/2019 Rheumatology Dave Guadarrama, R76.0 Raised antibody 1:00p [facility] - titer Ccmob M06.4 Inflammatory polyarthropathy R53.83 Other fatigue Office Visit 07/16/2019 2:00p [place]/Mike Persaud, R53.83 Other fatigue Neurologic [facility] ICD 9 CODER R53.1 Weakness G43.009 Migraine w/o aura, not intractable, w/o status migrainosus Office Visit 06/11/2019 1:00p [place]/Mike Persaud, R53.83 Other fatigue Neurologic [facility] Table [facility] ICD 9 CODER R53.1 Weakness G43.009 Migraine w/o aura, not intractable, w/o status migrainosus Office Visit 04/09/2019 1:00p [place] Fredy Persaud, R53.83 Other fatigue [facility] ICD 9 CODER R53.1 Weakness Assessments Date Code Description Provider 08/21/2019 R76.0 Raised antibody titer Dave Guadarrama MD 08/21/2019 M06.4 Inflammatory polyarthropathy Dave Guadarrama MD 08/21/2019 R53.83 Other fatigue Dave Guadarrama MD 07/16/2019 R53.83 Other fatigue Fredy Persaud, ICD 9 CODER 07/16/2019 R53.1 Weakness Fredysahil Persaud, ICD 9 CODER 07/16/2019 G43.009 Migraine without aura, not intractable, without Fredy Marleneke, ICD 9 CODER status migrainosus 06/11/2019 R53.83 Other fatigue Fredy Persaud, ICD 9 CODER 06/11/2019 R53.1 Weakness Fredy Persaud, ICD 9 CODER 06/11/2019 G43.009 Migraine without aura, not intractable, without Fredy Persaud, ICD 9 CODER status migrainosus 04/09/2019 R53.83 Other fatigue Fredy Persaud, ICD 9 CODER 04/09/2019 R53.1 Weakness Fredy Persaud NP Plan of Treatment Future Appointment(s):09/21/2019 4:00 pm - Dave Guadarrama MD at [facility]09/10/2019 1:00 pm - Fredy Persaud NP at [facility]08/21/2019 - Dave Guadarrama, MDR76.0 Raised antibody xowicP98.4 Inflammatory polyarthropathyNew Medication:Meloxicam 15 mg - 1 by mouth every dayFollow up:4-6 udploY83.83 Other fatigue Functional Status Description No Information Available Mental Status Description No Information Available Referrals Refer to Reason for Referral Status Appt Date Jose Guadarrama MD Positive NIKKY; unrelenting fatigue and Scheduled 2019 weakness that worsens throughout the day [address] [place] [address] [phone]
[2019-08-22 20:46] VITALS: BP 123/66
[2019-08-22] MEDS ORDERED: Acetaminophen TAB* 325 MG PO ONE (20:48)
--- NOTE | 2019-08-22 20:58 | UC ---
Upper Extremity HPI - HPI Summary HPI Summary: R handed and fell down the stairs after tripping on vacuum spice cleaner. she had immediate R elbow pain and swelling. has pain w/ extension. - History of Current Complaint Chief Complaint: UCUpperExtremity Stated Complaint: RIGHT ARM INJURY Time Seen by Provider: 08/22/19 20:41 Hx Obtained From: Patient Hx Last Menstrual Period: 08/03/19 Pain Intensity: 9 Pain Scale Used: 0-10 Numeric Character: Throbbing Aggravating Factor(s): Nothing Alleviating Factor(s): Nothing - Allergies/Home Medications Allergies/Adverse Reactions: Allergies Allergy/AdvReac Type Severity Reaction Status Date / Time No Known Allergies Allergy Verified 08/22/19 20:40 Home Medications: Home Medications Erenumab-Aooe [Aimovig Autoinjector] 1 syr MONTHLY 08/22/19 [History Confirmed 08/22/19] PMH/Surg Hx/FS Hx/Imm Hx Previously Healthy: Yes - Surgical History Surgical History: Yes Surgery Procedure, Year, and Place: T & A. EAR TUBES - Family History Known Family History: Positive: Other - both parents and 3 siblings have hypothyroid. No fmh of uti Family History: Hypothyrodism - Social History Alcohol Use: Rare Alcohol Amount: not drinking d/t Substance Use Type: None Smoking Status (MU): Never Smoked Tobacco Have You Smoked in the Last Year: No - Immunization History Most Recent Influenza Vaccination: 2013 Most Recent Tetanus Shot: 2013 Most Recent Pneumonia Vaccination: none Review of Systems All Other Systems Reviewed And Are Negative: Yes Constitutional: Negative: Fever Skin: Negative: Bruising Musculoskeletal: Positive: Arthralgia - r elbow Physical Exam Triage Information Reviewed: Yes Appearance: Well-Appearing Vital Signs: Initial Vital Signs Temp 98.3 F 08/22/19 20:41 Pulse 77 08/22/19 20:41 Resp 16 08/22/19 20:41 BP 123/66 08/22/19 20:41 Pulse Ox 99 08/22/19 20:41 Vital Signs Reviewed: Yes Neck: Positive: Supple, Nontender, No Lymphadenopathy Respiratory: Positive: No respiratory distress Cardiovascular Exam: Normal Musculoskeletal: Positive: ROM Limited @ - R elbow, Edema @ - r elbow, Other: - +pain w/ supination of R arm. able to shoulder shrug w/ no pain, R shoulder/ scapula nontender. Neurological: Positive: Alert Skin: Negative: Rashes, Other - bruising Upper Extremity Course/Dx - Course Course Of Treatment: R elbow swelling and pain after she fell down the stairs. sergio dv. She has decined opiates. prelim xray did not show obvious fx but placed her R arm in sling. - Differential Dx/Diagnosis Differential Diagnosis/HQI/PQRI: Bursitis, Contusion, Fracture (Open), Fracture (Closed), Strain, Sprain Provider Diagnosis: Contusion of right elbow Discharge ED - Sign-Out/Discharge Documenting (check all that apply): Patient Departure All imaging exams completed and their final reports reviewed: No - Discharge Plan Condition: Good Disposition: HOME Patient Education Materials: Elbow Sprain (ED) Forms: *Work Release Referrals: Alphonso Hillman MD [Primary Care Provider] - Additional Instructions: Our site will call you in the morning for the final read. - Billing Disposition and Condition Condition: GOOD Disposition: Home
--- NOTE | 2019-08-23 07:35 | UC ---
- Progress Note Progress Note: wet read correct Course/Dx - Diagnoses Provider Diagnoses: Contusion of right elbow Discharge ED - Sign-Out/Discharge Documenting (check all that apply): Post-Discharge Follow Up All imaging exams completed and their final reports reviewed: Yes - Discharge Plan Condition: Good Disposition: HOME Patient Education Materials: Elbow Sprain (ED) Forms: *Work Release Referrals: Alphonso Hillman MD [Primary Care Provider] - Additional Instructions: Our site will call you in the morning for the final read. - Billing Disposition and Condition Condition: GOOD Disposition: Home
== END 2019-08-22 21:45 | disposition home or self-care (01) ==
LOC: UCCORT 20:35
DX: S50.01XA Contusion of right elbow, initial encounter (principal); W10.9XXA Fall (on) (from) unspecified stairs and steps, initial encounter; Y92.9 Unspecified place or not applicable
CPT/HCPCS: 99213; A9270-GY; G0463

== ENCOUNTER 2019-10-01 09:05 | Emergency (ER) | payer BC ==
--- OUTSIDE RECORDS SUMMARY | 2019-10-01 10:27 | XMS REPORT | Continuity of Care Document ---
:1980 External Reference #:[id number] Author Name Dave Guadarrama MD (transmitted by agent of provider Ele Yang) Address [address] [place] [id number] Care Team Providers Name Role Phone Alphonso Hillman MD - Family Medicine Care Team Information Tunneller Problems Description No Information Available Social History Type Date Description Comments Sex Unknown Tobacco Use Start: Unknown Never Smoked Cigarettes Smoking Status Reviewed: 09/21/19 Never Smoked Cigarettes ETOH Use Occasionally consumes alcohol Tobacco Use Start: Unknown Patient has never smoked Recreational Drug Use Denies Drug Use Exercise Type/Frequency Exercises sporadically Allergies, Adverse Reactions, Alerts Description No Known Drug Allergies Medications Active Medications SIG Qnty Indications Ordering Provider Date Ferrous Sulfate 1 by mouth 180tabs Dave Guadarrama, 08/25/2019 325(65Fe) twice every day MD mg Tablets Meloxicam 1 by mouth 90tabs M06.4 Dave Guadarrama, 08/21/2019 15mg Tablets every day Aimovig inject sq once 1ml G43.009 Dontae Lepe, 07/16/2019 70mg/ml Solution a month M.D. Auto-Inject Zoloft 1 by mouth Unknown 100mg Tablets every day Magnesium takes 150mg Unknown 300mg Capsules daily Multivitamin Adult 1 by mouth Unknown every day Chewtabs Acidophilus Probiotic daily Unknown 10mg Capsules History Medications Topiramate Take one tab by mouth 21tabs Dontae Lepe, 07/16/2019 - 25mg twice a day for one M.D. 08/20/2019 Tablets week, then take one tab by mouth for one week, then discontinue. Immunizations Description No Information Available Vital Signs Date Vital Result Comment 09/21/2019 4:00pm Height 62 inches 5'2" Weight 175.00 lb Heart Rate 70 /min BP Systolic 108 mmHg BP Diastolic 72 mmHg Body Temperature 98.1 F Pain Level 4 O2 % BldC Oximetry 98 % BMI (Body Mass Index) 32.0 kg/m2 08/21/2019 12:38pm Height 62 inches 5'2" Weight 170.00 lb Heart Rate 70 /min BP Systolic 112 mmHg BP Diastolic 71 mmHg Body Temperature 98.9 F Pain Level 6 O2 % BldC Oximetry 98 % BMI (Body Mass Index) 31.1 kg/m2 Results Test Acquired Date Facility Test Result H/L Range Note Urine Culture And 08/21/2019 [facility] Urine SEE RESULT [address] [place] [address] [phone] Urinalysis Profile 08/21/2019 [facility] Urine Color Yellow [address] [place] [address] [phone] Urine Appearance Turbid Urine Specific [place] 1.020 Normal 1.010-1.030 Urine pH 7.0 Normal 5-9 Urine Urobilinogen Negative Negative Urine Ketones Negative Negative Urine Protein Negative Negative Urine Leukocytes 1+ Abnormal Negative Urine Blood Negative Negative * * Abnormal Negative 2 Urine Nitrite Negative Negative Urine Bilirubin Negative Negative Urine Glucose Negative Negative Urine White Blood Cell 2+(11-20/hpf) Abnormal Absent Urine Red Blood Cell Absent Absent Urine Bacteria Absent Absent Urine Squamous Epithelial Cell Present Abnormal Absent Urine Amorphous Crystals Present Abnormal Absent Vitamin B12 And 08/21/2019 [facility] Vitamin B12 946 pg/mL High 180-[address] [place] [address] [phone] Folic Acid (Folate) > 20.00 ng/mL >3.99 Iron & Iron Binding 08/21/2019 [facility] Iron 125 g/dL Normal 50-212 [address] [place] [address] [phone] Unsaturated Iron Binding < 479 g/dL Total Iron Binding Capacity 494 g/dL High 250-450 Transferrin 353 mg/dL Normal 203-362 % Iron Saturation 25 % Normal 15-55 Hla B27 08/21/2019 [facility] Hla B27 Negative [address] [place] [address] [phone] Hla B27 Interp See Comment 5 Laboratory test 08/21/2019 [facility] Ferritin 9.3 ng/mL Low 11-[address] [place] [address] [phone] Cyclic Citrullinated Pep Igg <15.6 U 6 Allison Igg AB Reflex 08/21/2019 [facility] SS-A/Ro Antibody <0.[address] [place] [address] [phone] SS-B/La Antibody <0.2 U 8 Sm ([place]) IgG Antibody <0.2 U 9 MFG ASSOC Antibody, IgG <0.2 U 10 Scl-70 (Scleroderma) Antibody <0.2 U 11 Tresa-1 Antibody <0.2 U 12 Arthritis Panel 08/21/2019 [facility] Erythrocyte Sed 14 mm/Hr Normal 0-[address] [place] [address] [phone] Uric Acid 2.5 mg/dL Normal 2.3-6.6 Rheumatoid Factor < 10 IU/mL Normal <15 Anti-Nuclear Antibody 0.5 U 13 Cyclic Citrullinated Peptide <15.6 U 14 Interpretation See Comment 15 Hepatitis C Antibody 08/21/2019 [facility] HCV Index 0.03 s/c [address] [place] [address] [phone] Hepatitis C Antibody Negative Negative Laboratory test 08/21/2019 [facility] Complement C4 20 mg/dL 14 - 40 16 finding [address] [place] [address] [phone] Hepatitis B Core AB Total Negative Negative 17 Hepatitis B Kris AB Titer Not Immune Abnormal Immune Lupus 08/21/2019 [facility] Lupus See Comment [address] [place] [address] Inter [phone] Prothrombin Time(Lac) 12.1 sec 9.4 - 12.5 Lac Inr 1.1 0.9-1.1 19 Lac Aptt 35 sec 25 - 37 DRVVT Screen Ratio 0.90 ratio <1.20 20 Neutrophil Cytoplasmic 08/21/2019 [facility] C-Anca Negative Negative AB [address] [place] [address] [phone] P-Anca Negative Negative 21 Cardiolipin 08/21/2019 [facility] Phospholipid Ab < 9.4 MPL 22 Igg/Igm [address] IgM, [place] [address] [phone] Phospholipid Ab IgG < 9.4 GPL 23 CBC Auto 08/21/2019 [facility] White Blood 7.8 10^3/uL Normal 3.5-10.[address] [place] [address] [phone] Red Blood Count 4.26 10^6/uL Normal 3.70-4.87 Hemoglobin 12.9 g/dL Normal 12.0-16.0 Hematocrit 38 % Normal 35-47 Mean Corpuscular Volume 88 fL Normal 80-97 Mean Corpuscular Hemoglobin 30 pg Normal 27-31 Mean Corpuscular HGB Conc 34 g/dL Normal 31-36 Red Cell Distribution Width 15 % Normal 10-15 Platelet Count 288 10^3/uL Normal 150-450 Mean Platelet Volume 7.6 fL Normal 7.4-10.4 Abs Neutrophils 5.4 10^3/uL Normal 1.5-7.7 Abs Lymphocytes 1.9 10^3/uL Normal 1.0-4.8 Abs Monocytes 0.4 10^3/uL Normal 0-0.8 Abs Eosinophils 0.1 10^3/uL Normal 0-0.6 Abs Basophils 0.0 10^3/uL Normal 0-0.2 Abs Nucleated RBC 0.0 10^3/uL Granulocyte % 69.1 % Lymphocyte % 24.8 % Monocyte % 5.0 % Eosinophil % 0.7 % Basophil % 0.4 % Nucleated Red Blood Cells % 0.0 Laboratory test 08/21/2019 [facility] Complement C3 128 mg/dL 75 - 175 24 finding [address] [place] [address] [phone] Anti Double Stranded Dna AB <12.3 IU/mL 25 Comp Metabolic 08/21/2019 [facility] Sodium 138 mmol/L Normal 135-145 Panel [address] [place] [address] [phone] Potassium 4.0 mmol/L Normal 3.5-5.0 Chloride 103 mmol/L Normal 101-111 Co2 Carbon Dioxide 28 mmol/L Normal 22-32 Anion Gap 7 mmol/L Normal 2-11 Calcium 9.6 mg/dL Normal 8.6-10.3 Albumin 4.6 g/dL Normal 3.2-5.2 Total Bilirubin 0.40 mg/dL Normal 0.2-1.0 Glucose 102 mg/dL High 70-100 Blood Urea Nitrogen 18 mg/dL Normal 6-24 Creatinine 0.84 mg/dL Normal 0.51-0.95 BUN/Creatinine Ratio 21.4 High 8-20 Total Protein 7.2 g/dL Normal 6.4-8.9 Globulin 2.6 g/dL Normal 2-4 Albumin/Globulin Ratio 1.8 Normal 1-3 Alkaline Phosphatase 45 U/L Normal 34-104 Alt 12 U/L Normal 7-52 Ast 19 U/L Normal 13-39 Egfr Non- 75.1 >60 Egfr 90.9 >60 26 Beta 2 Glycoprotein 08/21/2019 [facility] Beta 2 <9.4 U/mL [address] [facility] [place] [address] [phone] Beta 2 Glycoprotein IgM <9.4 U/mL 28 Laboratory test finding 08/21/2019 [facility] Anti Ssa/Ro <0.2 U [address] [place] [address] [phone] Anti SSB LA <0.2 U 30 Laboratory test 07/20/2019 [facility] Caspr2-IgG Cba,S Negative 31 finding [address] [place] [address] [phone] Lgi1-IgG Cba, S Negative 32 Comp Metabolic 07/20/2019 [facility] Sodium 138 mmol/L Normal 135-145 Panel [address] [place] [address] [phone] Potassium 4.3 mmol/L Normal 3.5-5.0 Chloride 109 [...] Egfr Non- 83.0 >60 Egfr 100.5 >60 33 CBC Auto 07/20/2019 [facility] White Blood 5.2 10^3/uL Normal 3.5-10.[address] [place] [address] [phone] Red Blood Count 3.82 10^6/uL Normal 3.70-4.87 [...] % Nucleated Red Blood Cells % 0.0 Paraneoplastic 07/20/2019 [facility] Paraneoplastic Ab See Comment [address] [place] [address] [phone] Anti-Neuronal Nuclear Ab Type1 Negative titer <1:240 Reflex Added None. 35 Anti-Neuronal Nuclear Ab Type2 Negative titer <1:240 36 Anti-Neuronal Nuclear Ab Type3 Negative titer <1:240 37 Anti-Glial/Neuronal Nuc Ab-1 A Negative titer <1:240 38 Purkinje Cell Cytoplasm Type 1 Negative titer <1:240 39 Purkinje Cell Cytoplasm Type 2 Negative titer <1:240 40 Purkinje Cell Cytoplasm Typ Tr Negative titer <1:240 41 Amphiphysin Antibody Negative titer <1:240 42 CRMP-5 IgG Antibody Negative titer <1:240 43 Anti-Striated Muscle Antibody Negative titer <1:120 44 Calcium Channel Binding Ab P/Q 0.00 nmol/L <=0.02 45 N Type Calcium Channel Binding 0.00 nmol/L <=0.03 46 AChR Ganglionic Neuronal Ab 0.00 nmol/L <=0.02 47 Voltage-Gated Potassium Chann 0.02 nmol/L <=0.02 48 Myasthenia 07/20/2019 [facility] MG Adult See Comment 49 Gravis (), [address] [place] [address] [phone] Acetylcholine Receptor Binding 0.00 nmol/L <=0.02 50 Acetylcholine Recept Mod Ab 13 % 51 Anti-Striated Muscle Antibody Negative titer <1:120 52 Laboratory test 06/11/2019 [facility] C Reactive 1.14 mg/L Normal <8.01 [place] [address] [phone] Blood Urea Nitrogen BUN 19 mg/dL Normal 6-24 Creatinine 06/11/2019 [facility] Creatinine 0.81 mg/dL Normal 0.51-0.95 [place] [address] [phone] Egfr Non- 78.3 >60 Egfr 94.8 >60 53 Nuclear AB 06/11/2019 [facility] Nuclear Ab Positive 1:160 54 (Lacie) By Ifa (Lacie) by Ifa, [place] [address] IgG [phone] Lacie Titer: 1:160 Lacie Pattern: Speckled 55 Lyme Disease AB 06/11/2019 [facility] IgG Immunoblot Negative [place] [address] [phone] IgG detected against p41,p23 kDa IgM Immunoblot Negative Negative IgM detected against None kDa Lyme Disease Interpretation See Comment 56 Laboratory test finding 06/11/2019 [facility] Cortisol 14.47 g /dL 57 [place] [address] [phone] Creatine Kinase(CK) 53 U/L Normal 10-223 Laboratory test 04/09/2019 [facility] T3 Total 116 ng/dL Normal 87-[address] [place] [address] [phone] Thyroxine 8.05 g/dL Normal 6.09-12.23 Laboratory test 04/09/2019 [facility] Vitamin B12 662 pg/mL Normal 180-[address] [place] [address] [phone] Erythrocyte Sed Rate 12 mm/Hr Normal 0-19 Lyme Screen W/ Reflex To WB Negative Negative Comp Metabolic 04/09/2019 [facility] Sodium 138 mmol/L Normal 135-145 Panel [address] [place] [address] [phone] Potassium 4.0 mmol/L Normal 3.5-5.0 Chloride 108 [...] Egfr Non- 70.2 >60 Egfr 85.0 >60 59 Laboratory 04/09/2019 [facility] TSH (Thyroid 1.88 Normal 0.34 -5.[address] Stim Horm) mcIU/[place] [address] [phone] Folic Acid (Folate) > 20.00 ng/mL >3.99 CBC Auto 04/09/2019 [facility] White Blood 7.6 10^3/uL Normal 3.5-10.[address] [place] [address] [phone] Red Blood Count 4.25 10^6/uL Normal 3.70-4.87 [...] Red Blood Cells % 0.0 Protein 04/09/2019 [facility] Total 7.4 g/dL 6.3 - Electrophoresis [address] Protein(Pep) 7.9 [place] [address] [phone] Albumin 4.0 g/dL 3.4-4.7 Alpha-1 Globulin 0.2 g/dL 0.1-0.3 Alpha-2 Globulin 0.9 g/dL 0.6-1.0 Beta Globulin 1.2 g/dL 0.7-1.2 Gamma Globulin 1.1 g/dL 0.6-1.6 Albumin/Globulin Ratio 1.15 Impression See Comment 60 Laboratory test 04/09/2019 [facility] Methylmalonic 0.15 <= 0.40 [address] Acid Mma nmol/[place] [address] [phone] 1 SEE RESULT BELOW Name: DORITA CARDENAS : [address]: Dave Guadarrama MD Acct: [id number] Unit: [id number] AGE: 39 Location: LAB Re08/21/19 SEX: F Status: REG REF SPEC: [id number] CARMELLA: 08/21/19-1510 [facility] DR: Dave Guadarrama MD REQ: [id number] RECD: 08/21/19155 STATUS: COMP _ SOURCE: URINE SPDESC: ORDERED: Urine Culture Procedure Result Reported Site Urine Culture Final 08/23/19- 950 ML No Growth (<1,000 CFU/mL) * ML - Main Lab . END OF REPORT DEPARTMENT OF PATHOLOGY, [address] [place] [address] Juanito Marcelino M.D. Director [facility] # [id number] 2 *Ascorbic acid is present which may interfere with detection of blood. 3 Normal Range 180 to 914 Indeterminate Range 145 to 180 Deficient Range <145 4 REFERENCE VALUE Not Applicable 5 RESULT: HLA-B27 antigen was not detected. ADDITIONAL INFORMATION Method: Flow Cytometry Test Performed by: [facility] - [facility] [address] [place] [address] Big Data Admin: Jacob Nolan M.D. Ph.D.; CLIA# [id number] 6 REFERENCE VALUE <20.0 (Negative) Test Performed by: [facility] - [address] [place] [address] Big Data Admin: Jacob Nolan M.D. Ph.D.; CLIA# [id number] 7 REFERENCE VALUE <1.0 (Negative) 8 REFERENCE VALUE <1.0 (Negative) 9 REFERENCE VALUE <1.0 (Negative) 10 REFERENCE VALUE <1.0 (Negative) 11 REFERENCE VALUE <1.0 (Negative) 12 REFERENCE VALUE <1.0 (Negative) Test Performed by: [facility] [place] [address] Big Data Admin: Jacob Nolan M.D. Ph.D.; CLIA# [id number] 13 REFERENCE VALUE <=1.0 (Negative) 14 REFERENCE VALUE <20.0 (Negative) 15 Tests for antibodies to dsDNA and ALLISON antigens are not performed automatically unless the LACIE result is > or = 3.0 U. Studies performed at [facility] indicate that positive LACIE results <3.0 U are rarely accompanied by positive second order tests. Test Performed by: [place] [address] Big Data Admin: Jacob Nolan M.D. Ph.D.; CLIA# [id number] 16 Test Performed by: [place] [address] Big Data Admin: Jacob Nolan M.D. Ph.D.; CLIA# [id number] 17 Test Performed by: [place] [address] Big Data Admin: Jacob Nolan M.D. Ph.D.; CLIA# [id number] 18 No evidence of a lupus anticoagulant based on results of Prothrombin Time (PT), Activated Partial Thromboplastin Time (APTT), and Dilute Russells Viper Venom Time (DRVVT). Interpretation not reviewed by physician. 19 ADDITIONAL INFORMATION Standard intensity warfarin therapeutic range: 2.0 to 3.0 High intensity warfarin therapeutic range: 2.5 to 3.5 20 Test Performed by: [facility] - [place] [id number] Big Data Admin: Jacob Nolan M.D. Ph.D.; CLIA# [id number] 21 Negative for cANCA and pANCA patterns by immunofluorescence. ADDITIONAL INFORMATION This test was developed and its performance characteristics determined by [facility] in a manner consistent with CLIA requirements. This test has not been cleared or approved by the U.S. Food and Drug Administration. Test Performed by: [facility] [place] [address] Big Data Admin: Jacob Nolan M.D. Ph.D.; CLIA# [id number] 22 REFERENCE VALUE <15.0 (Negative) 23 REFERENCE VALUE <15.0 (Negative) Test Performed by: [place] [address] Big Data Admin: Jacob Nolan M.D. Ph.D.; CLIA# [id number] 24 Test Performed by: [place] [address] Big Data Admin: Jacob Nolan M.D. Ph.D.; CLIA# [id number] 25 REFERENCE VALUE <30.0 (Negative) Test Performed by: [facility] [place] [address] Big Data Admin: Jacob Nolan M.D. Ph.D.; CLIA# [id number] 26 Because ethnic data is not always readily [...] 15-29 5 Kidney failure <15 (or dialysis) 27 REFERENCE VALUE <15.0 (Negative) 28 REFERENCE VALUE <15.0 (Negative) Test Performed by: [facility] [place] [address] Big Data Admin: Jacob Nolan M.D. Ph.D.; CLIA# [id number] 29 REFERENCE VALUE <1.0 (Negative) Test Performed by: [facility] [place] [address] Big Data Admin: Jacob Nolan M.D. Ph.D.; CLIA# [id number] 30 REFERENCE VALUE <1.0 (Negative) Test Performed by: [facility] - [facility] [address] [place] [address] Big Data Admin: Jacob Nolan M.D. Ph.D.; CLIA# [id number] 31 ADDITIONAL INFORMATION This test was developed and its performance characteristics determined by [facility] in a manner consistent with CLIA requirements. This test has not been cleared or approved by the U.S. Food and Drug Administration. Test Performed by: [facility] [place] [address] Big Data Admin: Jacob Nolan M.D. Ph.D.; CLIA# [id number] 32 ADDITIONAL INFORMATION This test was developed and its performance characteristics determined by [facility] in a manner consistent with CLIA requirements. This test has not been cleared or approved by the U.S. Food and Drug Administration. Test Performed by: [facility] - [place] [id number] Big Data Admin: Jacob Nolan M.D. Ph.D.; CLIA# [id number] 33 Because ethnic data is not always readily [...] 15-29 5 Kidney failure <15 (or dialysis) 34 Reflexed test(s) performed per testing algorithm. * No informative autoantibodies were detected in the Paraneoplastic Evaluation. However, a negative result does not exclude neurological autoimmunity with or without associated neoplasia. Sensitivity and specificity of antibody testing are enhanced by testing both serum and CSF. 35 ADDITIONAL INFORMATION This test was developed and its performance characteristics determined by [facility] in a manner consistent with CLIA requirements. This test has not been cleared or approved by the U.S. Food and Drug Administration. 36 ADDITIONAL INFORMATION This test was developed and its performance characteristics determined by [facility] in a manner consistent with CLIA requirements. This test has not been cleared or approved by the U.S. Food and Drug Administration. 37 ADDITIONAL INFORMATION This test was developed and its performance characteristics determined by [facility] in a manner consistent with CLIA requirements. This test has not been cleared or approved by the U.S. Food and Drug Administration. 38 ADDITIONAL INFORMATION This test was developed and its performance characteristics determined by [facility] in a manner consistent with CLIA requirements. This test has not been cleared or approved by the U.S. Food and Drug Administration. 39 ADDITIONAL INFORMATION This test was developed and its performance characteristics determined by [facility] in a manner consistent with CLIA requirements. This test has not been cleared or approved by the U.S. Food and Drug Administration. 40 ADDITIONAL INFORMATION This test was developed and its performance characteristics determined by [facility] in a manner consistent with CLIA requirements. This test has not been cleared or approved by the U.S. Food and Drug Administration. 41 ADDITIONAL INFORMATION This test was developed and its performance characteristics determined by [facility] in a manner consistent with CLIA requirements. This test has not been cleared or approved by the U.S. Food and Drug Administration. 42 ADDITIONAL INFORMATION This test was developed and its performance characteristics determined by [facility] in a manner consistent with CLIA requirements. This test has not been cleared or approved by the U.S. Food and Drug Administration. 43 ADDITIONAL INFORMATION This test was developed and its performance characteristics determined by [facility] in a manner consistent with CLIA requirements. This test has not been cleared or approved by the U.S. Food and Drug Administration. 44 ADDITIONAL INFORMATION This test was developed and its performance characteristics determined by [facility] in a manner consistent with CLIA requirements. This test has not been cleared or approved by the U.S. Food and Drug Administration. Test Performed by: [address] [address] Big Data Admin: Jacob Nolan M.D. Ph.D.; CLIA# [id number] 45 ADDITIONAL INFORMATION This test was developed and its performance characteristics determined by [facility] in a manner consistent with CLIA requirements. This test has not been cleared or approved by the U.S. Food and Drug Administration. 46 ADDITIONAL INFORMATION This test was developed and its performance characteristics determined by [facility] in a manner consistent with CLIA requirements. This test has not been cleared or approved by the U.S. Food and Drug Administration. 47 ADDITIONAL INFORMATION This test was developed and its performance characteristics determined by [facility] in a manner consistent with CLIA requirements. This test has not been cleared or approved by the U.S. Food and Drug Administration. 48 ADDITIONAL INFORMATION This test was developed and its performance characteristics determined by [facility] in a manner consistent with CLIA requirements. This test has not been cleared or approved by the U.S. Food and Drug Administration. 49 A negative result does not exclude the diagnosis of autoimmune myasthenia gravis. 50 ADDITIONAL INFORMATION This test was developed and its performance characteristics determined by [facility] in a manner consistent with CLIA requirements. This test has not been cleared or approved by the U.S. Food and Drug Administration. 51 REFERENCE VALUE 0-20% (reported as _% loss of AChR) ADDITIONAL INFORMATION This test was developed and its performance characteristics determined by [facility] in a manner consistent with CLIA requirements. This test has not been cleared or approved by the U.S. Food and Drug Administration. 52 ADDITIONAL INFORMATION This test was developed and its performance characteristics determined by [facility] in a manner consistent with CLIA requirements. This test has not been cleared or approved by the U.S. Food and Drug Administration. Test Performed by: [facility] - [address] [address] Big Data Admin: Jacob Nolan M.D. Ph.D.; CLIA# [id number] 53 Because ethnic data is not always readily [...] 15-29 5 Kidney failure <15 (or dialysis) 54 REFERENCE VALUE <1:80 (Negative) 55 Test Performed by: [facility] [address] [place] [address] Big Data Admin: Jacob Nolan M.D. Ph.D.; CLIA# [id number] 56 Specific serologic response to B. burgdorferi infection [...] 30 days of symptoms. Test Performed by: [facility] [email or web address] [facility] [place] [address] Big Data Admin: Jacob Nolan M.D. Ph.D.; IA# [id number] 57 AM 8.7-22.4 PM <10 58 Normal Range 180 to 914 Indeterminate Range 145 to 180 Deficient Range <145 59 Because ethnic data is not always readily [...] 15-29 5 Kidney failure <15 (or dialysis) 60 RESULT: No apparent monoclonal protein on serum electrophoresis. Test Performed by: [facility] [place] [address] Big Data Admin: Jacob Nolan M.D. Ph.D.; CLIA# [id number] 61 ADDITIONAL INFORMATION This test was developed and its performance characteristics determined by [facility] in a manner consistent with CLIA requirements. This test has not been cleared or approved by the U.S. Food and Drug Administration. Test Performed by: [address] [address] Big Data Admin: Jacob Nolan M.D. Ph.D.; CLIA# [id number] Procedures Description No Information Available Medical Devices Description No Information Available Encounters Type Date Location Provider Dx Diagnosis Office Visit 08/21/2019 Rheumatology Dave Guadarrama, R76.0 Raised antibody 1:00[facility] [employer] - MD titer Ccmob M06.4 Inflammatory polyarthropathy R53.83 Other fatigue Office Visit 07/16/2019 2:00p Marcial/Mike Persaud, R53.83 Other fatigue [facility] [employer] R53.1 Weakness G43.009 Migraine w/o aura, not intractable, w/o status migrainosus Office Visit 06/11/2019 1:00p Marcial/Mike Persaud, R53.83 Other fatigue [facility] [employer] R53.1 Weakness G43.009 Migraine w/o aura, not intractable, w/o status migrainosus Office Visit 04/09/2019 1:00p Marcial/Mike Persaud R53.83 Other fatigue [facility] [employer] R53.1 Weakness Assessments Date Code Description Provider 09/21/2019 M13.0 Polyarthritis, unspecified Dave Guadarrama MD 09/21/2019 R76.0 Raised antibody titer Dave Guadarrama MD 08/21/2019 R76.0 Raised antibody titer Dave Guadarrama MD 08/21/2019 M06.4 Inflammatory polyarthropathy Dave Guadarrama MD 08/21/2019 R53.83 Other fatigue Dave Guadarrama MD 07/16/2019 R53.83 Other fatigue Fredy Persaud NP 07/16/2019 R53.1 Weakness Fredy Persaud NP 07/16/2019 G43.009 Migraine without aura, not intractable, without Fredy Persaud NP status migrainosus 06/11/2019 R53.83 Other fatigue Fredy Persaud, [employer] 06/11/2019 R53.1 Weakness Fredy Persaud, [employer] 06/11/2019 G43.009 Migraine without aura, not intractable, without Fredy Persaud NP status migrainosus 04/09/2019 R53.83 Other fatigue Fredy Persaud, [employer] 04/09/2019 R53.1 Weakness Fredy Persaud NP Plan of Treatment Future Appointment(s):12/22/2019 4:00 pm - Dave Guadarrama MD at [facility]11/05/2019 2:00 pm - Fredy Persaud NP at [facility] [place] [facility]09/21/2019 - Dave Guadarrama, MDM13.0 Polyarthritis, unspecifiedFollow up:f/u 3 [id number] Raised antibody titer Functional Status Description No Information Available Mental Status Description No Information Available Referrals Refer to Dr Reason for Referral Status Appt Date Jose Guadarrama MD Positive LACIE; unrelenting fatigue and Scheduled 2019 weakness that worsens throughout the day [address] [place] [address] [place] [address] [phone]
[2019-10-01 10:52] VITALS: BP 122/70
[2019-10-01 11:02] LABS: Influenza A Molecular Negative (Negative); Influenza B Molecular Negative (Negative)
--- NOTE | 2019-10-01 11:35 | UC ---
FLU HPI - HPI Summary HPI Summary: 39-year-old female presents with 5 day history of low-grade fever, fatigue, general malaise, mild nasal congestion, dry nonproductive cough, and mild nausea. Max temperature 100 F. No recent travel. Denies headache, ear pain, sore throat, chest pain, shortness of breath, abdominal pain, vomiting, or diarrhea. - History of Current Complaint Chief Complaint: UCGeneralIllness Stated Complaint: BODYACHES LOW GRADE FEVER Time Seen by Provider: 10/01/19 10:34 Hx Obtained From: Patient Hx Last Menstrual Period: 09/26/19 Pain Intensity: 6 - Allergy/Home Medications Allergies/Adverse Reactions: Allergies Allergy/AdvReac Type Severity Reaction Status Date / Time No Known Allergies Allergy Verified 10/01/19 10:41 Home Medications: Home Medications Albuterol HFA INHALER* [Ventolin HFA Inhaler*] 1 - 2 puff INH Q6H PRN #1 mdi [Rx Confirmed 08/22/19] Sertraline* [Zoloft*] 50 mg PO DAILY 08/08/17 [History Confirmed 10/01/19] Erenumab-Aooe [Aimovig Autoinjector] 1 syr MONTHLY 08/22/19 [History Confirmed 08/22/19] Ibuprofen TAB* [Advil TAB*] 400 mg PO Q6H PRN 10/01/19 [History Confirmed ] Norgestimate-Ethinyl Estradiol [Ortho Tri-Cyclen 28 Tablet] 1 each PO DAILY 07/10 [History Confirmed 10/01/19] PMH/Surg Hx/FS Hx/Imm Hx Respiratory History: Asthma Neurological History: Migraine - Surgical History Surgical History: Yes Surgery Procedure, Year, and Place: T & A. EAR TUBES - Family History Family History: Hypothyrodism - Social History Occupation: Employed Full-time Lives: With Family Alcohol Use: Occasionally Alcohol Amount: not drinking d/t Substance Use Type: None Smoking Status (MU): Never Smoked Tobacco Have You Smoked in the Last Year: No - Immunization History Most Recent Influenza Vaccination: 2013 Most Recent Tetanus Shot: 2013 Most Recent Pneumonia Vaccination: none Review of Systems All Other Systems Reviewed And Are Negative: Yes Constitutional: Positive: Fever, Fatigue Skin: Negative: Rash Eyes: Negative: Drainage, Eye Redness ENT: Positive: Nasal Discharge, Sinus Congestion. Negative: Sore Throat, Ear Ache, Sinus Pain/Tenderness Respiratory: Positive: Cough. Negative: Shortness Of Breath Cardiovascular: Negative: Palpitations, Chest Pain Gastrointestinal: Negative: Abdominal Pain, Vomiting, Diarrhea, Nausea Genitourinary: Positive: Negative Musculoskeletal: Positive: Myalgia Neurological/Mental Status: Negative: Headache Is Patient Immunocompromised?: No Physical Exam - Summary Physical Exam Summary: GENERAL APPEARANCE: Well developed, well nourished, alert and cooperative, and appears to be in no acute distress. EYES: Conjunctiva clear. No drainage. EARS: External auditory canals and tympanic membranes clear, hearing grossly intact. NOSE: Mild nasal congestion. No nasal discharge. THROAT: Mild pharyngeal erythema. No tonsilar inflammation, swelling, exudate, or lesions. Uvula midline. NECK: Neck supple, non-tender without lymphadenopathy. CARDIAC: Normal S1 and S2. No S3, S4 or murmurs. Rhythm is regular. There is no peripheral edema, cyanosis or pallor. Extremities are warm and well perfused. Capillary refill is less than 2 seconds. Peripheral pulses intact. LUNGS: Clear to auscultation without rales, rhonchi, wheezing or diminished breath sounds. Dry nonproductive cough. ABDOMEN: Positive bowel sounds. Soft, nondistended, nontender. No guarding or rebound. No masses or hepatosplenomegally. MUSKULOSKELETAL: ROM intact to all extremities. No joint erythema or tenderness. Normal muscular development. Normal gait. SKIN: Skin normal color, texture and turgor with no lesions or eruptions Triage Information Reviewed: Yes Vital Signs: Initial Vital Signs Temp 98 F 10/01/19 10:44 Pulse 69 10/01/19 10:44 Resp 20 10/01/19 10:44 BP 122/70 10/01/19 10:44 Pulse Ox 96 10/01/19 10:44 Vital Signs Reviewed: Yes Flu Course/Dx - Course Course Of Treatment: 39-year-old female presents with 5 day history of low-grade fever, fatigue, general malaise, mild nasal congestion, dry nonproductive cough, and mild nausea. Max temperature 100 F. No recent travel. Denies headache, ear pain, sore throat, chest pain, shortness of breath, abdominal pain, vomiting, or diarrhea. Afebrile. Vital signs stable. Patient had mild nasal congestion, normal TMs, mild pharyngeal erythema without tonsillar swelling or exudate, no cervical lymphadenopathy, clear bilateral breath sounds, dry nonproductive cough , and otherwise unremarkable exam. Rapid flu test was negative. Recommending symptomatic treatment for a viral syndrome. She is to follow-up with her primary care provider in 3-5 days if symptoms are not improving. Anticipatory guidance and warning symptoms were reviewed with the patient. Verbalizes understanding and agrees with plan of care. - Differential Dx/Diagnosis Differential Diagnosis/HQI/PQRI: Bronchitis, Influenza, Pneumonia, Upper Respiratory Infection Provider Diagnosis: Viral syndrome Discharge ED - Sign-Out/Discharge Documenting (check all that apply): Patient Departure All imaging exams completed and their final reports reviewed: No Studies - Discharge Plan Condition: Stable Disposition: HOME Patient Education Materials: Viral Syndrome (ED) Referrals: Alphonso Hillman MD [Primary Care Provider] - 3 Days Additional Instructions: Your history and exam are consistent with a viral infection. Viral infections do not respond to antibiotics and are limited to the treatment of symptoms. Viral infections typically run their course in 7-10 days. Drink plenty of fluids to avoid dehydration especially if you are running any fever. Use a saline rinse kit such as Neti Pot or NeilMed at least twice a day to help thin secretions and promote drainage of the sinuses. Use fluticasone (Flonase) nasal spray 2 sprays each nostril once daily. Take over the counter acetaminophen (Tylenol) or ibuprofen (Advil, Motrin) according to directions as needed for pain or fever. Follow up with your primary care provider in 3-5 days if symptoms persist. Seek immediate medical attention in the emergency room if you have fever greater than 100.5 F despite taking acetaminophen or ibuprofen, have chest pain , difficulty breathing, are unable to swallow, or have any worsening of symptoms. - Billing Disposition and Condition Condition: STABLE Disposition: Home
== END 2019-10-01 11:46 | disposition home or self-care (01) ==
LOC: UCCORT 09:05
DX: B34.9 Viral infection, unspecified (principal); R53.83 Other fatigue; R53.81 Other malaise; R09.81 Nasal congestion; R05 Cough; R11.0 Nausea; J45.909 Unspecified asthma, uncomplicated
CPT/HCPCS: 99211; G0463